=== PATIENT | female | born 1955 | race African-American/Black ===

== ENCOUNTER 2022-10-29 08:18 | Emergency (ER) | payer BC, MEDICAID ==
[~2022-10-29] VITALS: Ht 157.5 cm; Wt 80.0 kg
[2022-10-29 08:41] LABS: Lymphocytes # (auto) 4.1 10 ^3/uL (0.4-5.4); Nucleated Red Blood Cells % 0.1 %
[2022-10-29 08:44] LABS: Basophils # (auto) 0 10 ^3/uL (0-0.2); Basophils % (auto) 0.2 % (0.0-2.0); Eosinophils # (auto) 0.3 10 ^3/uL (0-0.8); Eosinophils % (auto) 2.7 % (0.0-7.0); Hematocrit 35.7 % (36.0-46.0); Hemoglobin 12.3 g/dL (12.2-16.2); Lymphocytes % (auto) 38.5 % (10.0-50.0); Mean Corpuscular Hemoglobin 26.1 pg (28.0-32.0); Mean Corpuscular Hgb Conc. 34.4 g/dL (32.0-36.0); Mean Corpuscular Volume 75.8 fL (80.0-100.0); Monocytes # (auto) 0.7 10 ^3/uL (0-1.3); Monocytes % (auto) 6.9 % (0.0-12.0); Neutrophils # (auto) 5.5 10 ^3/uL (1.6-8.6); Neutrophils % (auto) 51.7 % (37.0-80.0); Red Blood Cells 4.71 10^6/uL (4.0-5.20); Red Cell Distribution Width 18.1 % (11.8-14.3); White Blood Cell 10.7 10^3/uL (4.4-10.8)
[2022-10-29 08:59] LABS: Calcium 9.4 mg/dL (8.5-10.1); Potassium 3.7 mmol/L (3.5-5.1)
[2022-10-29 09:03] LABS: BUN/Creatinine Ratio 17.1; Bilirubin, Total 0.4 mg/dL (0.2-1.0); Total Protein 8.1 g/dL (6.4-8.2)
[2022-10-29 13:25] VITALS: BP 148/63
== END 2022-10-29 13:27 | disposition home or self-care (01) ==
LOC: ER 08:18
DX: R07.89 Other chest pain (principal); E11.9 Type 2 diabetes mellitus without complications; I10 Essential (primary) hypertension; Z88.8 Allergy status to other drugs, medicaments and biological substances; Z91.040 Latex allergy status; Z88.2 Allergy status to sulfonamides; Z86.73 Personal history of transient ischemic attack (TIA), and cerebral infarction without residual deficits; Z90.49 Acquired absence of other specified parts of digestive tract; Z90.89 Acquired absence of other organs; Z98.51 Tubal ligation status
CPT/HCPCS: 36415; 71045; 80053; 83735; 83880; 84484; 85025; 85379; 93005

== ENCOUNTER → 2024-09-13 | Outpatient (CLI) | payer MEDICAID ==
[2024-09-13 12:39] LABS: Basophils # (auto) 0 10 ^3/uL (0-0.2); Basophils % (auto) 0.3 % (0.0-2.0); Eosinophils # (auto) 0.1 10 ^3/uL (0-0.8); Eosinophils % (auto) 1.4 % (0.0-7.0); Hemoglobin 12.8 g/dL (12.2-16.2); Lymphocytes # (auto) 2.7 10 ^3/uL (0.4-5.4); Lymphocytes % (auto) 27.7 % (10.0-50.0); Mean Corpuscular Hemoglobin 26.1 pg (28.0-32.0); Mean Corpuscular Hgb Conc. 34.5 g/dL (32.0-36.0); Mean Corpuscular Volume 75.6 fL (80.0-100.0); Monocytes # (auto) 0.8 10 ^3/uL (0-1.3); Monocytes % (auto) 7.8 % (0.0-12.0); Neutrophils # (auto) 6.1 10 ^3/uL (1.6-8.6); Neutrophils % (auto) 62.8 % (37.0-80.0); Nucleated Red Blood Cells % 0.1 %; Platelet Count (auto) 366 10^3/uL (140-450); Red Blood Cells 4.89 10^6/uL (4.0-5.20); Red Cell Distribution Width 18.5 % (11.8-14.3); White Blood Cell 9.7 10^3/uL (4.4-10.8)
[2024-09-13 13:46] LABS: Alanine Aminotransferase 12 U/L (7-40); Anion Gap 8 (5-15); BUN/Creatinine Ratio 10.7 (10.0-20.0); Calcium 10.3 mg/dL (8.7-10.4); Carbon Dioxide 30 mmol/L (20-31); Chloride 102 mmol/L (98-107); Potassium 3.7 mmol/L (3.5-5.1); Sodium 140 mmol/L (136-145); Triglycerides 104 mg/dL (< 150)
[2024-09-13 13:47] LABS: LDL Cholesterol 59 mg/dL (< 100)
[2024-09-13 13:48] LABS: Albumin 4.5 g/dL (3.2-4.8); Bilirubin, Total 0.4 mg/dL (0.2-1.0); Cholesterol 124 mg/dL (< 200); HDL Cholesterol 49 mg/dL (40-59); Total Protein 7.8 g/dL (5.7-8.2)
[2024-09-13 13:49] LABS: Alkaline Phosphatase 120 U/L (46-116); Aspartate Aminotransferase 12 U/L (13-40); Blood Urea Nitrogen 9 mg/dL (9-23); Glucose 132 mg/dL (74-106)
[2024-09-14 07:06] LABS: Basos 0 % (Not Estab.); Eos 2 % (Not Estab.); Eos (Absolute) 0.1 x10E3/uL (0.0-0.4); Hematocrit 40.2 % (34.0-46.6); Hemoglobin 12.8 g/dL (11.1-15.9); Immature Granulocytes (Abs) 0.1 x10E3/uL (0.0-0.1); Lymphs 28 % (Not Estab.); Lymphs (Absolute) 2.7 x10E3/uL (0.7-3.1); MCH 25.5 pg (26.6-33.0); MCHC 31.8 g/dL (31.5-35.7); MCV 80 fL (79-97); Monocytes 8 % (Not Estab.); Monocytes (Absolute) 0.7 x10E3/uL (0.1-0.9); Neutrophils 61 % (Not Estab.); Platelets 401 x10E3/uL (150-450); RBC 5.02 x10E6/uL (3.77-5.28); RDW 16.4 % (11.7-15.4); WBC 9.7 x10E3/uL (3.4-10.8)
[2024-09-14 12:06] LABS: % CD 4 Pos Lymph 46.1 % (30.8-58.5); % CD 8 Pos Lymph 37.3 % (12.0-35.5); Absolute CD 4 Helper 1245 /uL (359-1519); CD4/CD8 Ratio 1.24 (0.92-3.72)
== END | disposition home or self-care (01) ==
LOC: LAB 11:16
DX: E11.65 Type 2 diabetes mellitus with hyperglycemia (principal); I10 Essential (primary) hypertension; B20 Human immunodeficiency virus [HIV] disease; J45.998 Other asthma; Z79.4 Long term (current) use of insulin
CPT/HCPCS: 36415; 80053; 80061; 83036; 85025; 86360

== ENCOUNTER → 2024-11-08 | Outpatient (CLI) | payer OTHER, MEDICAID ==
[2024-11-08 11:20] LABS: Basophils # (auto) 0 10 ^3/uL (0-0.2); Basophils % (auto) 0.4 % (0.0-2.0); Eosinophils # (auto) 0.1 10 ^3/uL (0-0.8); Eosinophils % (auto) 1.8 % (0.0-7.0); Hematocrit 37.9 % (36.0-46.0); Hemoglobin 12.4 g/dL (12.2-16.2); Lymphocytes # (auto) 2.1 10 ^3/uL (0.4-5.4); Lymphocytes % (auto) 30.7 % (10.0-50.0); Mean Corpuscular Hemoglobin 24.7 pg (28.0-32.0); Mean Corpuscular Hgb Conc. 32.6 g/dL (32.0-36.0); Mean Corpuscular Volume 75.8 fL (80.0-100.0); Monocytes # (auto) 0.6 10 ^3/uL (0-1.3); Monocytes % (auto) 8.5 % (0.0-12.0); Neutrophils % (auto) 58.6 % (37.0-80.0); Platelet Count (auto) 343 10^3/uL (140-450); Red Blood Cells 5.01 10^6/uL (4.0-5.20); Red Cell Distribution Width 18.5 % (11.8-14.3); White Blood Cell 6.9 10^3/uL (4.4-10.8)
[2024-11-08 12:00] LABS: Urine Protein/Creatinine Ratio 0.23
[2024-11-08 12:07] LABS: Protein, Urine < 6.0 mg/dL (1-14)
[2024-11-08 12:13] LABS: Erythrocyte Sedimentation Rate 44 mm/hr (0-20)
[2024-11-08 12:19] LABS: CRP High Sensitivity 1.01 mg/dL (<1.0)
== END | disposition home or self-care (01) ==
LOC: LAB 10:51
PROVIDERS: ATTEND Internal Medicine Rheumatology
DX: L40.50 Arthropathic psoriasis, unspecified (principal); L40.9 Psoriasis, unspecified
CPT/HCPCS: 36415; 82043; 82570; 84156; 84450; 85025; 85652; 86141

== ENCOUNTER → 2024-12-03 | Outpatient (CLI) | payer MEDICAID ==
[2024-12-03 09:53] LABS: Basophils # (auto) 0 10 ^3/uL (0-0.2); Eosinophils # (auto) 0.1 10 ^3/uL (0-0.8); Eosinophils % (auto) 1.7 % (0.0-7.0); Hemoglobin 12.3 g/dL (12.2-16.2); Monocytes # (auto) 0.8 10 ^3/uL (0-1.3); Neutrophils # (auto) 4.3 10 ^3/uL (1.6-8.6)
[2024-12-03 09:55] LABS: Basophils % (auto) 0.2 % (0.0-2.0); Hematocrit 36.4 % (36.0-46.0); Lymphocytes # (auto) 2.6 10 ^3/uL (0.4-5.4); Mean Corpuscular Hemoglobin 25.8 pg (28.0-32.0); Mean Corpuscular Hgb Conc. 33.9 g/dL (32.0-36.0); Monocytes % (auto) 10.5 % (0.0-12.0); Neutrophils % (auto) 54.6 % (37.0-80.0); Platelet Count (auto) 345 10^3/uL (140-450); Red Blood Cells 4.79 10^6/uL (4.0-5.20); Red Cell Distribution Width 17.7 % (11.8-14.3); White Blood Cell 7.9 10^3/uL (4.4-10.8)
[2024-12-03 10:53] LABS: Erythrocyte Sedimentation Rate 36 mm/hr (0-20)
[2024-12-03 11:03] LABS: CRP High Sensitivity 0.82 mg/dL (<1.0)
== END | disposition home or self-care (01) ==
LOC: LAB 08:07
PROVIDERS: ATTEND Internal Medicine Rheumatology
DX: L40.50 Arthropathic psoriasis, unspecified (principal)
CPT/HCPCS: 36415; 84450; 84460; 85025; 85652; 86141

== ENCOUNTER 2024-12-13 07:42 | Emergency (ER) | payer MEDICAID ==
[~2024-12-13] VITALS: Ht 165.1 cm; Wt 83.3 kg
[2024-12-13 08:00] VITALS: PULSE 103; RESP 18; O2SAT 99
[2024-12-13 08:05] VITALS: TEMP 98.2
--- NOTE | 2024-12-13 08:53 | DVH ---
CHEST RADIOGRAPH Indication: sob Technique: Single frontal view of the chest was obtained Comparison: CHEST PORTABLE on DOS: 10/29/22, CXRP on DOS: 10/29/22 FINDINGS: Lines and Tubes: None Lungs: No focal consolidation. Pleura: No effusion. No pneumothorax. Cardiomediastinal contours: Unremarkable Bones: No acute osseous abnormality. IMPRESSION: 1. No acute cardiopulmonary disease.
[2024-12-13] MEDS: methylPREDNISolone SOD SUCC 125 MG/2 ML VL IV ONE (08:57)
[2024-12-13] MEDS: AZITHROMYCIN 250 MG TAB PO ONE (08:57)
[2024-12-13] MEDS: IPRATROPIUM BROM 0.5 MG/2.5ML INH SOL NEB ONE (08:58)
[2024-12-13] MEDS: ALBUTEROL SULF 2.5 MG/0.5ML(0.5%) NEB SOLN NEB ONE (08:58)
--- NOTE | 2024-12-13 09:13 | ED.PDOC ---
History of Present Illness HPI Comments 69 y/o obese F, with a history of asthma, CVA, DM, and HTN, presents with c/o shortness of breath, nonproductive cough, wheezing, nonradiating, left-sided chest pain, and nausea, today. Patient endorses on ongoing symptoms following unprovoked and gradual onset 1x week ago, with no relief or improvement with multiple at-home albuterol inhaler use. She states on pain being localized to underneath her left-breast. Patient reports no recent sick contact, travel, or substance use along with any additional relevant history. She denies any palpitations, vomiting, fever, chills, or other associated symptoms or modifiers at this time. Chief Complaint: Shortness of Breath Time Seen by MD: 08:20 Primary Care Provider: sherine Reviewed Notes: Nurses Notes, Medications, Allergies Allergies: Coded Allergies: Cephalexin (Verified Allergy, Mild, 05/14/11) Iodine (Verified Allergy, Mild, 05/14/11) Latex (Verified Allergy, Mild, 05/14/11) Uncoded Allergies: ASA (Allergy, Mild, 05/14/11) SULFA (Allergy, Mild, 05/14/11) Information Source: Patient Mode of Arrival: Ambulatory Severity: Moderate Timing: Weeks Duration: Since onset Prehospital treatment: Breathing Tx (multiple at-home albuterol inhaler use ) Past Medical History PAST MEDICAL HISTORY: Asthma, CVA, DM (insulin dependent), HTN Past Medical History (Other): obesity Surgical History: Appendectomy, Tonsillectomy, Tubal Ligation Surgical History (Other): bowel surgery Family History Family History: Family hx of Cancer, Family hx of HTN, Family hx of stroke Social History Smoker: Non-Smoker Alcohol: Denies ETOH Use Drugs: Denies Drug Use Lives In: Home All Other Systems: Reviewed and Negative (Comprehensive systems review obtained and negative except for what is stated in the HPI.) Physical Exam General Appearance: No Apparent Distress, Normal HEENT: Normal ENT Inspection, Pharynx Normal, TMs Normal Neck: Full Range of Motion, Non-Tender, Normal, Normal Inspection Respiratory: Chest Non-Tender, No Accessory Muscle Use, Other (shortness of breath ) Cardiovascular: No Edema, No JVD, No Murmur, No Gallop, Normal Peripheral Pulses, Regular Rate/Rhythm Breast Exam: Deferred Gastrointestinal: No Organomegaly, Non Tender, No Pulsatile Mass, Normal Bowel Sounds, Soft Genitalia: Deferred Pelvic: Deferred Rectal: Deferred Extremities: No calf tenderness, Normal capillary refill, Normal inspection, Normal range of motion, Non-tender, No pedal edema Musculoskeletal : Apperance: Normal Neurologic: Alert, molder trimmer II-XII nml as Tested, No Motor Deficits, Normal Affect, Normal Mood, No Sensory Deficits Cerebellar Function: Normal Reflexes: Normal Skin: Dry, Normal Color, Warm Lymphatic: No Adenopathy Was a procedure done? Was a procedure done?: No Differential Dx Considerations may include: URI, PNA, viral syndrome, TN, PE, ACS, angina, costochondritis, pericarditis, viral syndrome, among others X-Ray, Labs, Meds, VS Vital Signs Date Time Temp Pulse Resp B/P (MAP) Pulse Ox O2 Delivery O2 Flow Rate FiO2 12/13/24 10:00 93 23 128/54 (78) 97 12/13/24 08:58 16 98 Room Air* 0 21 12/13/24 08:30 115 17 139/64 (89) 98 12/13/24 08:05 98.2 97 16 154/57 (89) 97 98.2 12/13/24 08:00 103 18 99 Room Air* 0 21 12/13/24 08:00 97 12/13/24 07:57 98.2 122 24 177/74 (108) 98 98.2 Lab Test 12/13/24 09:10 Range/Units White Blood Count 8.3 4.4-10.8 10^3/uL Red Blood Count 4.98 4.0-5.20 10^6/uL Hemoglobin 12.5 12.2-16.2 g/dL Hematocrit 37.5 36.0-46.0 % Mean Corpuscular Volume 75.3 L 80.0-100.0 fL Mean Corpuscular Hemoglobin 25.1 L 28.0-32.0 pg Mean Corpuscular Hemoglobin Concent 33.4 32.0-36.0 g/dL Red Cell Distribution Width 17.6 H 11.8-14.3 % Platelet Count 338 140-450 10^3/uL Mean Platelet Volume 7.2 6.9-10.8 fL Neutrophils (%) (Auto) 51.5 37.0-80.0 % Lymphocytes (%) (Auto) 37.1 10.0-50.0 % Monocytes (%) (Auto) 7.2 0.0-12.0 % Eosinophils (%) (Auto) 3.9 0.0-7.0 % Basophils (%) (Auto) 0.3 0.0-2.0 % Neutrophils # (Auto) 4.3 1.6-8.6 10 ^3/uL Lymphocytes # (Auto) 3.1 0.4-5.4 10 ^3/uL Monocytes # (Auto) 0.6 0-1.3 10 ^3/uL Eosinophils # (Auto) 0.3 0-0.8 10 ^3/uL Basophils # (Auto) 0 0-0.2 10 ^3/uL Nucleated Red Blood Cells 0.1 % Sodium Level 139 136-145 mmol/L Potassium Level 3.8 3.5-5.1 mmol/L Chloride Level 102 98-107 mmol/L Carbon Dioxide Level 30 20-31 mmol/L Anion Gap 7 5-15 Blood Urea Nitrogen 9 9-23 mg/dL Creatinine 0.80 0.550-1.02 mg/dL Glomerular Filtration Rate Calc 80 >90 mL/min BUN/Creatinine Ratio 11.3 10.0-20.0 Serum Glucose 148 H 74-106 mg/dL Calcium Level 10.4 8.7-10.4 mg/dL Troponin I High Sensitivity 6 </=34 ng/L B-Type Natriuretic Peptide 4.31 0-100 pg/mL Current Medications Medications (Trade) Dose Ordered Sig/Jorge Route Start Time Stop Time Status Last Admin Albuterol (Ventolin Medneb) 5 mg ONCE ONCE NEB 12/13/24 08:30 12/13/24 08:31 DC 12/13/24 08:58 Ipratropium [place] (Atrovent Medneb) 0.5 mg ONCE ONCE NEB 12/13/24 08:30 12/13/24 08:31 DC 12/13/24 08:58 Methylprednisolone Sodium Succinate (Solu Medrol) 62.5 mg ONCE ONCE IV 12/13/24 08:30 12/13/24 08:31 DC 12/13/24 08:57 Azithromycin (Zithromax Tablet) 500 mg ONCE ONCE PO 12/13/24 08:30 12/13/24 08:31 DC 12/13/24 08:57 [facility] [id number] [address] Ph: [phone] DIAGNOSTIC IMAGING Diagnostic Imaging Report : [id number] Signed PATIENT: JOHNY BERNSTEIN ACCT: [id number] UNIT: [id number] : 1955 LOC: ER ROOM / BED: / AGE / SEX: 69 / F ADM STATUS: REG ER SERVICE 4 ORDERING PHYSICIAN: PINA BOSTON MD PROCEDURE(s): CXRP - CHEST PORTABLE REASON: sob ORDER NUMBER(s): [id number], ACCESSION NUMBER(s): [id number] CHEST RADIOGRAPH Indication: sob Technique: Single frontal view of the chest was obtained Comparison: CHEST PORTABLE on DOS: 10/29/22, CXRP on DOS: 10/29/22 FINDINGS: Lines and Tubes: None Lungs: No focal consolidation. Pleura: No effusion. No pneumothorax. Cardiomediastinal contours: Unremarkable Bones: No acute osseous abnormality. IMPRESSION: 1. No acute cardiopulmonary disease. ATED BY: DUANE SHARMA MD DICTATED DATE/TIME: 12/13/24850 SIGNED BY: DUANE SHARMA MD SIGNED DATE/TIME: 12/13/24850 CC: Time of 1ST Reevaluation: 08:50 Reevaluation 1ST: Unchanged Patient Education/Counseling: Diagnosis, Treatment Family Education/Counseling: No Family Present Additional Information Previous medical encounters reviewed: October 29, 2022 encounter for atypical chest pain The following tests were ordered, and results were reviewed by me: CXR, troponin, CBC, BNP, BMP Additional Information was gathered from interviewing the following independent historians: n/a I reviewed and agreed with the following test results read by other providers: CXR I discussed treatment and results with medical personnel and: Patient Departure 1 Departure Time of Disposition: 11:05 (Patient likely with a COPD exacerbation. Patient received nebulizers steroids and is feeling significantly better. We will discharge patient home with outpatient follow up) Impression: Primary Impression: COPD exacerbation Disposition: HOME / SELF CARE / HOMELESS Condition: Stable Additional Instructions: You likely had a COPD exacerbation. You should use your inhaler as directed. Your prescribed steroids and azithromycin. Please take as directed. It is important to follow up with the regular doctor within 1 week. If your symptoms worsen or you have any other concerns please return to the emergency room. e-Prescriptions Azithromycin (ZITHROMAX TABLET) 250 Mg Tb 250 MG PO DAILY for 4 Days, #4 TAB Prov: PINA BOSTON MD 12/13/24 Prednisone (Prednisone) 20 Mg Tab 40 MG PO DAILY for 5 Days, #10 MG Prov: PINA BOSTON MD 12/13/24 Discharged With: Self Critical Care Note Critical Care Time?: No Stability Stability form required: No Heart Score Heart Score: Heart Score Response (Comments) Value History Slightly Suspicious 0 EKG Normal 0 Age >65 2 Risk Factors >3 or Hx ASHD 2 Troponin Normal limit 0 Total 4 I personally scribed for PINA BOSTON MD ([email or web address]) on 12/13/24 at 09:13. Electronically submitted by Jaiden Suresh ([email or web address]). I personally scribed for PINA BOSTON MD ([email or web address]) on 12/13/24 at 11:02. Electronically submitted by Jaiden Suresh ([email or web address]). PINA BOSTON MD Dec 13, 2024 09:13
[2024-12-13 09:19] LABS: Basophils # (auto) 0 10 ^3/uL (0-0.2); Basophils % (auto) 0.3 % (0.0-2.0); Eosinophils # (auto) 0.3 10 ^3/uL (0-0.8); Eosinophils % (auto) 3.9 % (0.0-7.0); Hematocrit 37.5 % (36.0-46.0); Hemoglobin 12.5 g/dL (12.2-16.2); Lymphocytes # (auto) 3.1 10 ^3/uL (0.4-5.4); Lymphocytes % (auto) 37.1 % (10.0-50.0); Mean Corpuscular Hemoglobin 25.1 pg (28.0-32.0); Mean Corpuscular Hgb Conc. 33.4 g/dL (32.0-36.0); Mean Corpuscular Volume 75.3 fL (80.0-100.0); Monocytes # (auto) 0.6 10 ^3/uL (0-1.3); Monocytes % (auto) 7.2 % (0.0-12.0); Neutrophils # (auto) 4.3 10 ^3/uL (1.6-8.6); Neutrophils % (auto) 51.5 % (37.0-80.0); Nucleated Red Blood Cells % 0.1 %; Platelet Count (auto) 338 10^3/uL (140-450); Red Blood Cells 4.98 10^6/uL (4.0-5.20); Red Cell Distribution Width 17.6 % (11.8-14.3); White Blood Cell 8.3 10^3/uL (4.4-10.8)
[2024-12-13 09:42] LABS: Anion Gap 7 (5-15); Carbon Dioxide 30 mmol/L (20-31); Chloride 102 mmol/L (98-107); Potassium 3.8 mmol/L (3.5-5.1); Sodium 139 mmol/L (136-145)
[2024-12-13 09:43] LABS: Calcium 10.4 mg/dL (8.7-10.4)
[2024-12-13 09:48] LABS: BUN/Creatinine Ratio 11.3 (10.0-20.0)
[2024-12-13 09:51] LABS: Blood Urea Nitrogen 9 mg/dL (9-23); Glucose 148 mg/dL (74-106)
[2024-12-13 11:00] VITALS: BP 133/53; PULSE 86; RESP 20; O2SAT 97
[2024-12-13] MEDS ORDERED: PRED20TA2 PO (11:06)
[2024-12-13] MEDS ORDERED: AZIT-185 PO (11:06)
== END 2024-12-13 11:30 | disposition home or self-care (01) ==
LOC: ER 07:42
DX: J44.1 Chronic obstructive pulmonary disease with (acute) exacerbation (principal); E11.9 Type 2 diabetes mellitus without complications; I10 Essential (primary) hypertension; E66.9 Obesity, unspecified; Z91.040 Latex allergy status; Z88.1 Allergy status to other antibiotic agents; Z90.49 Acquired absence of other specified parts of digestive tract; Z90.89 Acquired absence of other organs; Z79.4 Long term (current) use of insulin
CPT/HCPCS: 36415; 71045; 80048; 83880; 84484; 85025; 94640; 96374; 99285; J2919

== ENCOUNTER → 2025-03-08 | Outpatient (CLI) | payer MEDICAID ==
[~2025-03-08] MED LIST: AZIT-185 PO; PRED20TA2 PO
[2025-03-08 10:03] LABS: Hematocrit 37.8 % (36.0-46.0); Hemoglobin 12.8 g/dL (12.2-16.2); Mean Corpuscular Hemoglobin 25.4 pg (28.0-32.0); Mean Corpuscular Volume 75.1 fL (80.0-100.0); Nucleated Red Blood Cells % 0.1 %
[2025-03-08 10:16] LABS: Protein, Urine 14.2 mg/dL (1-14)
[2025-03-08 10:24] LABS: Alanine Aminotransferase 15 U/L (7-40); Anion Gap 9 (5-15); BUN/Creatinine Ratio 17.6 (10.0-20.0); Blood Urea Nitrogen 15 mg/dL (9-23); Carbon Dioxide 29 mmol/L (20-31); Chloride 103 mmol/L (98-107); Glucose 102 mg/dL (74-106); Potassium 4.0 mmol/L (3.5-5.1); Sodium 141 mmol/L (136-145); Total Protein 8.1 g/dL (5.7-8.2); Triglycerides 110 mg/dL (< 150)
[2025-03-08 10:25] LABS: Bilirubin, Total 0.4 mg/dL (0.2-1.0); Cholesterol 189 mg/dL (< 200); HDL Cholesterol 54 mg/dL (40-59)
[2025-03-08 10:27] LABS: Albumin 4.9 g/dL (3.2-4.8); Alkaline Phosphatase 117 U/L (46-116); Calcium 10.7 mg/dL (8.7-10.4)
[2025-03-09 09:07] LABS: Hematocrit 42.0 % (34.0-46.6); Hemoglobin 12.7 g/dL (11.1-15.9); MCH 24.8 pg (26.6-33.0); MCHC 30.2 g/dL (31.5-35.7); MCV 82 fL (79-97); RBC 5.13 x10E6/uL (3.77-5.28); RDW 16.9 % (11.7-15.4); WBC 7.3 x10E3/uL (3.4-10.8)
[2025-03-09 11:07] LABS: CD4/CD8 Ratio 1.04 (0.92-3.72)
[2025-03-09 22:06] LABS: Chlamydia Trachomatis, NAA Negative (Negative); Neisseria gonorrhoeae, NAA Negative (Negative)
== END | disposition home or self-care (01) ==
LOC: LAB 09:19
PROVIDERS: ATTEND Specialist
DX: E11.65 Type 2 diabetes mellitus with hyperglycemia (principal); B20 Human immunodeficiency virus [HIV] disease; A53.0 Latent syphilis, unspecified as early or late; E21.0 Primary hyperparathyroidism
CPT/HCPCS: 36415; 80053; 80061; 82043; 82570; 83036; 84156; 85025; 86360; 86780; 87536

== ENCOUNTER → 2025-07-04 | Outpatient (CLI) | payer MEDICAID ==
[2025-07-04 12:33] LABS: Alanine Aminotransferase 12 U/L (7-40); Albumin 4.5 g/dL (3.2-4.8); Alkaline Phosphatase 105 U/L (46-116); Anion Gap 9 (5-15); BUN/Creatinine Ratio 16.9 (10.0-20.0); Bilirubin, Total 0.4 mg/dL (0.2-1.0); Blood Urea Nitrogen 14 mg/dL (9-23); Calcium 9.9 mg/dL (8.7-10.4); Carbon Dioxide 30 mmol/L (20-31); Chloride 104 mmol/L (98-107); Cholesterol 187 mg/dL (< 200); HDL Cholesterol 52 mg/dL (40-59); Potassium 3.6 mmol/L (3.5-5.1); Sodium 143 mmol/L (136-145); Total Protein 7.9 g/dL (5.7-8.2); Triglycerides 104 mg/dL (< 150)
[2025-07-04 12:37] LABS: Glucose 68 mg/dL (74-106)
== END | disposition home or self-care (01) ==
LOC: LAB 11:31
PROVIDERS: ATTEND Internal Medicine Endocrinology, Diabetes & Metabolism
DX: E11.65 Type 2 diabetes mellitus with hyperglycemia (principal)
CPT/HCPCS: 36415; 80053; 80061; 82306; 83036; 83970

== ENCOUNTER → 2025-07-19 | Outpatient (CLI) | payer MEDICAID ==
[2025-07-19 08:50] LABS: Mean Corpuscular Volume 76.3 fL (80.0-100.0); Nucleated Red Blood Cells % 0.1 %
[2025-07-19 08:52] LABS: Hematocrit 35.6 % (36.0-46.0); Hemoglobin 11.9 g/dL (12.2-16.2); Mean Corpuscular Hemoglobin 25.4 pg (28.0-32.0)
[2025-07-19 09:04] LABS: Alanine Aminotransferase 11 U/L (7-40); Albumin 4.6 g/dL (3.2-4.8); Alkaline Phosphatase 114 U/L (46-116); Anion Gap 10 (5-15); BUN/Creatinine Ratio 13.6 (10.0-20.0); Blood Urea Nitrogen 12 mg/dL (9-23); Calcium 10.0 mg/dL (8.7-10.4); Chloride 101 mmol/L (98-107); Glucose 104 mg/dL (74-106); Potassium 4.1 mmol/L (3.5-5.1); Sodium 142 mmol/L (136-145); Total Protein 7.9 g/dL (5.7-8.2)
[2025-07-19 09:05] LABS: Bilirubin, Total 0.3 mg/dL (0.2-1.0); Carbon Dioxide 31 mmol/L (20-31)
[2025-07-19 09:30] LABS: Triglycerides 95 mg/dL (< 150)
[2025-07-19 09:32] LABS: Cholesterol 176 mg/dL (< 200); HDL Cholesterol 50 mg/dL (40-59)
[2025-07-20 09:07] LABS: Hematocrit 38.3 % (34.0-46.6); Hemoglobin 12.0 g/dL (11.1-15.9); MCH 25.9 pg (26.6-33.0); MCHC 31.3 g/dL (31.5-35.7); MCV 83 fL (79-97); RBC 4.63 x10E6/uL (3.77-5.28); RDW 16.9 % (11.7-15.4); WBC 8.2 x10E3/uL (3.4-10.8)
[2025-07-20 14:07] LABS: CD4/CD8 Ratio 1.52 (0.92-3.72)
== END | disposition home or self-care (01) ==
LOC: LAB 08:14
PROVIDERS: ATTEND Specialist
DX: E11.65 Type 2 diabetes mellitus with hyperglycemia (principal); E78.5 Hyperlipidemia, unspecified; B20 Human immunodeficiency virus [HIV] disease
CPT/HCPCS: 36415; 80053; 80061; 85025; 86360